=== PATIENT | female | born 1995 | race African-American/Black ===

== ENCOUNTER 2018-01-21 11:59 | Emergency (ER) | payer OTHER ==
[2018-01-21] MEDS ORDERED: LIDOCAINE 1% MPF 2 ML AMPULE ONE (12:45)
--- NOTE | 2018-01-21 14:05 | EDPHYS ---
Physician Documentation [facility] Name: Mookie Arce Age: 22 yrs Sex: Female : 1995 Arrival Date: 01/21/2018 Time: 12:01 Bed 23 Private MD: None, None ED Physician Saeid Disla HPI: 01/21 12:38 This 22 yrs old Black Female presents to ER via Ambulatory with complaints of Abscess. jr8 12:38 Patient stated that she has had rash on skin for some time. History of eczema. Stated jr8 that she is developing abscesses to armpit on left side, breast on left side, and pubic region . Severity of symptoms: At their worst the symptoms were mild in the emergency department the symptoms are unchanged. The patient has not experienced similar symptoms in the past. The patient has not recently seen a physician. PATENT EXAMINER: 13:11 LMP N/A - . tw2 Historical: - Allergies: 12:21 No Known Allergies; ss - PMHx: 12:21 Asthma; ss - PSHx: 12:21 (March 09, 2017); ss - Immunization history:: Adult Immunizations unknown. - Social history:: Smoking status: Patient/guardian denies using tobacco. - Ebola Screening: : Patient denies exposure to infectious person Patient denies travel to an Ebola-affected area in the 21 days before illness onset. ROS: 12:38 Constitutional: Negative for fever, chills, and weight loss. jr8 12:38 Skin: Positive for abscess, rash. 12:38 All other systems are negative. Exam: 12:38 Eyes: Pupils equal round and reactive to light, extra-ocular motions intact. Lids and jr8 lashes normal. Conjunctiva and sclera are non-icteric and not injected. Cornea within normal limits. Periorbital areas with no swelling, redness, or edema. ENT: Nares patent. No nasal discharge, no septal abnormalities noted. Tympanic membranes are normal and external auditory canals are clear. Oropharynx with no redness, swelling, or masses, exudates, or evidence of obstruction, uvula midline. Mucous membranes moist. Neck: Trachea midline, no thyromegaly or masses palpated, and no cervical lymphadenopathy. Supple, full range of motion without nuchal rigidity, or vertebral point tenderness. No Meningismus. Cardiovascular: Regular rate and rhythm with a normal S1 and S2. No gallops, murmurs, or rubs. Normal PMI, no JVD. No pulse deficits. Respiratory: Lungs have equal breath sounds bilaterally, clear to auscultation and percussion. No rales, rhonchi or wheezes noted. No increased work of breathing, no retractions or nasal flaring. Abdomen/GI: Soft, non-tender, with normal bowel sounds. No distension or tympany. No guarding or rebound. No evidence of tenderness throughout. Back: No spinal tenderness. No costovertebral tenderness. Full range of motion. MS/ Extremity: Pulses equal, no cyanosis. Neurovascular intact. Full, normal range of motion. Neuro: Awake and alert, GCS 15, oriented to person, place, time, and situation. Cranial nerves II-XII grossly intact. Motor strength 5/5 in all extremities. Sensory grossly intact. Cerebellar exam normal. Normal gait. 12:38 Skin: small abscess with local induration noted to left axilla. Small abscess with local induration noted to 9 o'clock position of left breast. Small indurated region to mons pubis without abscess formation. Patient has eczematous lesions to flexural surfaces of arms, legs, and around hands and feet . Vital Signs: 12:21 BP 105 / 74; Pulse 85; Resp 16; Pulse Ox 98% on R/A; Weight 64.41 kg; Height 5 ft. 9 ss in. (175.26 cm); Pain 8/10; 12:22 Temp 98.2(TE); ss 13:33 BP 111 / 69; Pulse 74; Resp 17; Pulse Ox 99% on R/A; tw2 12:21 Body Mass Index 20.97 (64.41 kg, 175.26 cm) Procedures: 14:03 I \T\ D: Incision and drainage was performed for an abscess of the left axilla. Prepped jr8 with Betadine, Anesthetized with 6 ml's 1% Lidocaine. Incised with #11 blade. Drained moderate amount purulent fluid. bloody fluid. Loculations removed. Cultures obtained. Abscess cavity explored. Packed with iodoform gauze, Dressing: sterile 4x4 gauze, the patient tolerated the procedure well. MDM: 12:18 Patient medically screened. [facility] 14:03 Data reviewed: vital signs, nurses notes, lab test result(s), and as a result, I will jr8 discharge patient. Data interpreted: Pulse oximetry: on room air is 99 %. Interpretation: normal. Counseling: I had a detailed discussion with the patient and/or guardian regarding: the historical points, exam findings, and any diagnostic results supporting the discharge/admit diagnosis, lab results, the need for outpatient follow up, a family practitioner, to return to the emergency department if symptoms worsen or persist or if there are any questions or concerns that arise at home. 14:03 ED course: Patient is to come back in 48 hours for dressing change . jr8 01/21 12:37 Order name: Wound Culture tw2 01/21 12:36 Order name: I\T\D Setup; Complete Time: 12:37 jr8 Administered Medications: 13:55 Drug: Lidocaine (1 %) 5 mg {Note: via Andrey Renae PA.} Route: Infiltration; tw2 14:08 Follow up: Response: No adverse reaction tw2 14:12 Drug: Motrin 800 mg Route: PO; tw2 14:16 Follow up: Response: No adverse reaction tw2 Disposition: 16:52 Co-signature as Attending Physician, Saeid Disla MD. rn Disposition: 01/21/18 14:04 Discharged to Home. Impression: Atopic dermatitis, Cutaneous abscess of left axilla. - Condition is Stable. - Discharge Instructions: Skin Abscess, Incision and Drainage. - Prescriptions for Bactrim DS 800- 160 mg Oral Tablet - take 1 tablet by ORAL route every 12 hours for 10 days; 20 tablet. Prednisone 20 mg Oral Tablet - take 2 tablet by ORAL route once daily for 5 days; 10 tablet. - Medication Reconciliation Form, Thank You Letter, Antibiotic Education, Prescription Opioid Use, Work release form form. - Follow up: Emergency Department; When: 48 Hours; Reason: Wound Recheck, Recheck today's complaints, Continuance of care, Re-evaluation by your physician. - Problem is new. - Symptoms have improved. - Notes: Aquaphor ointment daily Signatures: Dispatcher [employer] EDMS Saeid Disla MD MD rn Smirch, Shelby, RN RN ss Oc Kapoor PA PA jr8 Xochitl Dias RN RN tw2 Corrections: (The following items were deleted from the chart) 13:11 12:21 Home Meds: None; tw2 14:17 14:04 01/21/2018 14:04 Discharged to Home. Impression: Atopic dermatitis; Cutaneous tw2 abscess of left axilla. Condition is Stable. Forms are Medication Reconciliation Form, Thank You Letter, Antibiotic Education, Prescription Opioid Use. Follow up: Emergency Department; When: 48 Hours; Reason: Wound Recheck, Recheck today's complaints, Continuance of care, Re-evaluation by your physician. Problem is new. Symptoms have improved. jr8
--- NOTE | 2018-01-21 14:05 | ER ---
Nurse's Notes [facility] Name: Mookie Arce Age: 22 yrs Sex: Female : 1995 Arrival Date: 01/21/2018 Time: 12:01 Bed 23 Private MD: None, None Diagnosis: Atopic dermatitis;Cutaneous abscess of left axilla Presentation: 01/21 12:16 Presenting complaint: Patient states: abscess to L axilla that began 4 days ago, is now ss draining after taking a few doses of an unknown antibiotic provided by her boyfriend. Pt is concerned because she has other "knots" popping up on her body that may be abscesses as well. Denies fever. Pt also c/o rash to R toe and finger that began "a while back". Pt states, "I thought it was athletes foot, but it's not going away.". Transition of care: patient was not received from another setting of care. Onset of symptoms is unknown. Risk Assessment: Do you want to hurt yourself or someone else? Patient reports no desire to harm self or others. Initial Sepsis Screen: Does the patient meet any 2 criteria? No. Patient's initial sepsis screen is negative. Does the patient have a suspected source of infection? Yes: Skin breakdown/wound. Care prior to arrival: None. 12:16 Method Of Arrival: Ambulatory ss 12:16 Acuity: GARRETT 4 ss RN FIELD: 13:11 LMP N/A - . tw2 Historical: - Allergies: 12:21 No Known Allergies; ss - PMHx: 12:21 Asthma; ss - PSHx: 12:21 (March 09, 2017); ss - Immunization history:: Adult Immunizations unknown. - Social history:: Smoking status: Patient/guardian denies using tobacco. - Ebola Screening: : Patient denies exposure to infectious person Patient denies travel to an Ebola-affected area in the 21 days before illness onset. Screenin:08 Abuse screen: Denies threats or abuse. Nutritional screening: No deficits noted. tw2 Tuberculosis screening: No symptoms or risk factors identified. Fall Risk None identified. Assessment: 13:06 General: Appears in no apparent distress. slender, Behavior is calm, cooperative, tw2 appropriate for age. Pain: Complains of pain in left axilla, left breast, suprapubic area. Neuro: Level of Consciousness is awake, alert, obeys commands, Oriented to person, place, time, situation. Cardiovascular: Denies chest pain, shortness of breath, Patient's skin is warm and dry. Respiratory: Airway is patent Respiratory effort is even, unlabored, Respiratory pattern is regular, symmetrical. GI: No signs and/or symptoms were reported involving the gastrointestinal system. : No signs and/or symptoms were reported regarding the genitourinary system. EENT: No signs and/or symptoms were reported regarding the EENT system. Derm: Abscess located on left axilla, left breast, suprapubic area. Musculoskeletal: Circulation, motion, and sensation intact. Range of motion: intact in all extremities. 14:16 Reassessment: Patient appears in no apparent distress at this time. Patient and/or tw2 family updated on plan of care and expected duration. Pain level reassessed. Patient is alert, oriented x 3, equal unlabored respirations, skin warm/dry/pink. Patient states feeling better. Vital Signs: 12:21 BP 105 / 74; Pulse 85; Resp 16; Pulse Ox 98% on R/A; Weight 64.41 kg; Height 5 ft. 9 ss in. (175.26 cm); Pain 8/10; 12:22 Temp 98.2(TE); ss 13:33 BP 111 / 69; Pulse 74; Resp 17; Pulse Ox 99% on R/A; tw2 12:21 Body Mass Index 20.97 (64.41 kg, 175.26 cm) ED Course: 12:01 Patient arrived in ED. sb2 12:01 None, None is Private Physician. sb2 12:10 Xochitl Dias, SATINDER is Primary Nurse. tw2 12:18 Oc Kapoor PA is PHCP. jr8 12:18 Saeid Disla MD is Attending Physician. jr8 12:21 Triage completed. ss 12:21 Arm band placed on right wrist. ss 13:08 Placed in gown. Bed in low position. Pulse ox on. NIBP on. tw2 13:08 Assist provider with I \\T\\ D: of an abscess on left axilla left breast, suprapubic area tw2 Set up I\\T\\D tray. Performed by Oc Roszak PA Culture sent to lab. 14:08 Wound Culture Sent. tw2 14:08 Assist provider with I \\T\\ D: of an abscess on left axilla provider lanced left breast tw2 abscess as well Wound packed. 4X4s, Dressing with tegaderm Patient tolerated well. Patient did not have IV access during this emergency room visit. Administered Medications: 13:55 Drug: Lidocaine (1 %) 5 mg {Note: via Andrey Renae PA.} Route: Infiltration; tw2 14:08 Follow up: Response: No adverse reaction tw2 14:12 Drug: Motrin 800 mg Route: PO; tw2 14:16 Follow up: Response: No adverse reaction tw2 Outcome: 14:04 Discharge ordered by . felecia 14:16 Discharged to home ambulatory, with friend. tw 14:16 Condition: stable 14:16 Discharge instructions given to patient, friend, Instructed on discharge instructions, follow up and referral plans. medication usage, wound care, Demonstrated understanding of instructions, follow-up care, medications, wound care, Prescriptions given X 2. 14:17 Patient left the ED. tw2 Addendum: 01/24/2018 09:08 Addendum: Culture Results: Positive wound culture. No further action required. Bacteria a a5 sensitive to prescribed antibiotic. Signatures: Xenia Quiñonez, RN RN aa5 Ayde Smith RN RN Oc Kapoor PA PA jr8 Xochitl Dias RN RN tw2 Jeana Partida sb2 Corrections: (The following items were deleted from the chart) 01/21 13:11 12:21 Home Meds: None; [facility]
[2018-01-21] MEDS ORDERED: IBUPROFEN 400 MG TAB ONE (14:19)
== END 2018-01-21 14:17 | disposition home or self-care (01) ==
LOC: ER 11:59
PROC: 0J9F0ZZ Drainage of Left Upper Arm Subcutaneous Tissue and Fascia, Open Approach (ICD-10-PCS; principal; 2018-01-21)
DX: L02.412 Cutaneous abscess of left axilla (principal)
CPT/HCPCS: 87070; 87077; 87186; 87205; 99284; J2001

== ENCOUNTER 2018-01-23 13:43 | Emergency (ER) | payer OTHER ==
--- NOTE | 2018-01-23 17:25 | ER ---
Nurse's Notes [facility] Name: Mookie Arce Age: 22 yrs Sex: Female : 1995 Arrival Date: 01/23/2018 Time: 13:47 Bed 6 Private MD: None, None Diagnosis: Encounter for change or removal of surgical wound dressing Presentation: 01/23 14:34 Presenting complaint: Patient states: Had abscess to left axilla lanced and packed in aj this ER 2 days ago. Reports that she was told to come back to the ER and have the wound rechecked. Purulent drainage noted with packing in place, no dressing in place. Transition of care: patient was not received from another setting of care. Onset of symptoms was January 21, 2018. Risk Assessment: Do you want to hurt yourself or someone else? Patient reports no desire to harm self or others. Initial Sepsis Screen: Does the patient meet any 2 criteria? No. Patient's initial sepsis screen is negative. Does the patient have a suspected source of infection? No. Patient's initial sepsis screen is negative. Care prior to arrival: None. 14:34 Method Of Arrival: Ambulatory 14:34 Acuity: GARRETT 4 Triage Assessment: 14:36 General: Appears in no apparent distress. comfortable, Behavior is calm, cooperative, aj appropriate for age. Pain: Denies pain. Neuro: Level of Consciousness is awake, alert, obeys commands, Oriented to person, place, time, situation, Appropriate for age. Respiratory: Airway is patent Respiratory effort is even, unlabored, Respiratory pattern is regular, symmetrical. Derm: Skin is intact, is healthy with good turgor, Skin is pink, warm \T\ dry. normal, Abscess located on left axilla is half dollar sized, has purulent drainage, packing in place. 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 - Social history:: Smoking status: Patient/guardian denies using tobacco. - Ebola Screening: : Patient negative for fever greater than or equal to 101.5 degrees Fahrenheit, and additional compatible Ebola Virus Disease symptoms Patient denies exposure to infectious person Patient denies travel to an Ebola-affected area in the 21 days before illness onset No symptoms or risks identified at this time. Screenin:43 Abuse screen: Denies threats or abuse. Denies injuries from another. Nutritional ss screening: No deficits noted. Tuberculosis screening: Never had TB. Fall Risk None identified. Assessment: 17:30 General: Appears in no apparent distress. comfortable, Behavior is calm, cooperative. ss Pain: Denies pain. Neuro: Level of Consciousness is awake, alert, obeys commands, Oriented to person, place, time, situation. Cardiovascular: Capillary refill < 3 seconds is brisk in bilateral fingers. Respiratory: Airway is patent Respiratory effort is even, unlabored, Respiratory pattern is regular, symmetrical. Derm: Skin is intact, is healthy with good turgor, Skin is dry, Skin is pink, warm \T\ dry. normal. Musculoskeletal: Circulation, motion, and sensation intact. Range of motion: intact in all extremities, Swelling absent. Vital Signs: 14:36 BP 94 / 69; Pulse 63; Resp 16; Temp 97.4; Pulse Ox 100% on R/A; Weight 65.77 kg; Height aj 5 ft. 9 in. (175.26 cm); 14:36 Body Mass Index 21.41 (65.77 kg, 175.26 cm) aj ED Course: 13:47 Patient arrived in ED. mr 13:47 None, None is Private Physician. mr 14:36 Triage completed. aj 14:36 Arm band placed on left wrist. Patient placed in waiting room, Patient notified of wait aj time. 16:39 Fercho Kang PA is PHCP. cp 16:39 Fercho Lopez MD is Attending Physician. cp 17:08 Gerry Pruett, SATINDER is Primary Nurse. sg 17:43 No provider procedures requiring assistance completed. Patient did not have IV access ss during this emergency room visit. Administered Medications: No medications were administered Outcome: 17:24 Discharge ordered by . cp 17:43 Discharged to home ambulatory. ss 17:43 Condition: good 17:43 Discharge instructions given to patient, family, Instructed on discharge instructions, follow up and referral plans. medication usage, Demonstrated understanding of instructions, follow-up care. 17:44 Patient left the ED. sv Signatures: Daylin Shirley, Gerry Molina RN, RN RN sg Myers, Amanda, RN RN aj Rivera Charla mr Ayde Smith RN RN Fercho Schwartz PA PA cp
--- NOTE | 2018-01-23 17:25 | EDPHYS ---
Physician Documentation [facility] Name: Mookie Arce Age: 22 yrs Sex: Female : 1995 Arrival Date: 01/23/2018 Time: 13:47 Bed 6 Private MD: None, None ED Physician Fercho Lopez HPI: 01/23 17:21 This 22 yrs old Black Female presents to ER via Ambulatory with complaints of Abscess cp Recheck. 17:22 Patient presents to ED for recheck of: abscess. The affected area is on the left cp axilla. Previous treatment: The patient was initially treated 2 day(s) ago, the care was rendered at [facility], Treatment type: The patient's original treatment included an I\T\D, Previous recheck: the patient has not been checked since the original treatment. Progress: The patient reports decreased drainage, swelling. 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 - Social history:: Smoking status: Patient/guardian denies using tobacco. - Ebola Screening: : Patient negative for fever greater than or equal to 101.5 degrees Fahrenheit, and additional compatible Ebola Virus Disease symptoms Patient denies exposure to infectious person Patient denies travel to an Ebola-affected area in the 21 days before illness onset No symptoms or risks identified at this time. ROS: 17:22 All other systems are negative. cp Exam: 17:23 Skin: Wound recheck: Abscess: the wound has improved, decreased discharge, the packing cp is in place. Vital Signs: 14:36 BP 94 / 69; Pulse 63; Resp 16; Temp 97.4; Pulse Ox 100% on R/A; Weight 65.77 kg; Height aj 5 ft. 9 in. (175.26 cm); 14:36 Body Mass Index 21.41 (65.77 kg, 175.26 cm) aj Procedures: 17:20 Performed Dressing change and repacking. Previous packing removed. Left Axilla cleaned cp with normal saline. Minimal drainage expressed from site. Area repacked using 1/4 inch packing strip. Area dressed with 4 by 4 gauze. Patient tolerated well. MDM: 16:40 Patient medically screened. cp 17:24 Data reviewed: vital signs, nurses notes, and as a result, I will discharge patient. cp Administered Medications: No medications were administered Disposition: 17:45 Chart complete. cp Disposition: 01/23/18 17:24 Discharged to Home. Impression: Encounter for change or removal of surgical wound dressing. - Condition is Stable. - Discharge Instructions: How to Change Your Dressing, Incision and Drainage, Care After. - Medication Reconciliation Form, Thank You Letter, Antibiotic Education, Prescription Opioid Use form. - Follow up: Emergency Department; When: As needed; Reason: Worsening of condition. - Problem is new. - Symptoms have improved. Addendum: 01/26/2018 06:55 Co-signature as Attending Physician, Fercho Lopez MD I agree with the assessment and c seymour plan of care. Signatures: Daylin Shirley RN RN sv Myers, Amanda, RN RN aj Anderson, Corey, MD MD cha Page, Corey, PA PA cp Corrections: (The following items were deleted from the chart) 01/23 17:44 17:24 01/23/2018 17:24 Discharged to Home. Impression: Encounter for change or removal sv of surgical wound dressing. Condition is Stable. Forms are Medication Reconciliation Form, Thank You Letter, Antibiotic Education, Prescription Opioid Use. Follow up: Emergency Department; When: As needed; Reason: Worsening of condition. Problem is new. Symptoms have improved. cp
== END 2018-01-23 17:44 | disposition home or self-care (01) ==
LOC: ER 13:43
DX: Z48.01 Encounter for change or removal of surgical wound dressing (principal)
CPT/HCPCS: 99281